=== PATIENT | male | born 1995 | race Caucasian/White ===

== ENCOUNTER 2018-03-03 20:59 | Emergency (ER) | payer OTHER ==
[2018-03-03] MEDS ORDERED: Ketorolac Tromethamine 30 MG/ML VIAL ONE (21:31)
[2018-03-03] MEDS ORDERED: diphenhydrAMINE 50 MG/ML VIAL ONE (21:31)
[2018-03-03] MEDS ORDERED: Metoclopramide HCl 10 MG/2 ML VIAL ONE (21:31)
== END 2018-03-03 22:57 | disposition home or self-care (01) ==
LOC: SCSER 20:59
DX: G43.809 Other migraine, not intractable, without status migrainosus (principal); F17.220 Nicotine dependence, chewing tobacco, uncomplicated
CPT/HCPCS: 96365; 96375; J1200; J1885; J2765